=== PATIENT | female | born 1995 | race Caucasian/White ===

== ENCOUNTER 2023-07-30 13:27 | Outpatient (CLI) | payer BC ==
[2023-07-30 14:58] LABS: #Eosinphils 0.1 10x3/uL (0.0-0.5); #Monocytes 0.6 10x3/uL (0.0-1.1); #Neutrophils 3.4 10x3/uL (1.5-8.4); %Basophils 0.5 % (0.0-2.0); %Eosinophils 1.3 % (0.0-6.0); %Lymphocytes 34.8 % (18.0-47.0); %Monocytes 9.4 % (0.0-10.0); %Neutrophils 53.7 % (40.0-75.0); Hematocrit 41.2 % (34.9-44.5); Hemoglobin 14.1 g/dL (12.0-15.5); Mean Corpuscular HGB CONC 34.2 g/dL (32.0-36.0); Mean Corpuscular Hemoglobin 31.5 pg (27.0-33.0); Mean Corpuscular Volume 92.2 fl (81.6-98.3); Mean Platelet Volume 9.9 fl (7.4-10.4); Platelet Count 297 10x3/uL (150-450); RBC Distribution Width 11.8 % (11.5-14.5); Red Blood Cell (RBC) Count 4.47 10x6/uL (3.90-5.03); White Blood Cell (WBC) Count 6.3 10x3/uL (3.5-10.5)
[2023-07-30 15:13] LABS: BHCG - Serum Negative (NEGATIVE); Pregs Control Background? CLEAR/WHITE (CLR/WHITE); Pregs Control Bar Appear? YES (CONTROL BAR)
[2023-07-30 15:20] LABS: ALT (SGPT) 21 U/L (8-55); AST (SGOT) 23 U/L (5-34); Albumin 4.1 g/dL (3.5-5.0); Alkaline Phosphatase 62 U/L (40-110); Bilirubin, Direct 0.1 mg/dL (0.1-0.3); Bilirubin, Total 0.2 mg/dL (0.2-1.2); Protein, Total 7.3 g/dL (6.0-8.3)
== END 2023-07-30 13:28 | disposition home or self-care (01) ==
LOC: LABBT 13:27
PROVIDERS: ATTEND Surgery
DX: Z01.812 Encounter for preprocedural laboratory examination (principal); K80.20 Calculus of gallbladder without cholecystitis without obstruction
CPT/HCPCS: 80076; 84703; 85025

== ENCOUNTER 2023-08-04 09:15 | Day surgery (SDC) | payer BC ==
[2023-07-30 13:54] VITALS: BMI 31.7
[2023-08-04] MEDS ORDERED: Lidocaine 1% MPF 2 ML VIAL ONE (10:01)
[2023-08-04] MEDS ORDERED: LevoFLOXacin 500 mg/D5W 100 ML BAG ONE (10:02)
[2023-08-04] MEDS ORDERED: EPINEPHrine 1 MG/ML VIAL ONE (10:20)
[2023-08-04] MEDS ORDERED: Indocyanine Green 25 MG/10 ML VIAL ONE (10:20)
[2023-08-04] MEDS ORDERED: Bupivacaine 0.25% HCL 30 ML VIAL ONE (10:20)
[2023-08-04] MEDS ORDERED: SUGAMMADEX SODIUM 200 MG/2 ML VIAL ONE (11:24)
[2023-08-04] MEDS ORDERED: fentaNYL 50 mcg/mL 1 mL Vial ONE ×3 (11:24→13:01)
[2023-08-04] MEDS ORDERED: Meperidine HCl/PF 25 MG/ML VIAL ONE (11:24)
[2023-08-04] MEDS ORDERED: Famotidine/PF 20 mg/2ml Vial ONE (11:24)
[2023-08-04] MEDS ORDERED: Ondansetron PF 4 MG/2 ML Vial ONE (11:32)
[2023-08-04] MEDS ORDERED: Rocuronium Bromide 10 MG/ML (10ML VIAL) ONE (11:32)
[2023-08-04] MEDS ORDERED: Dexamethasone 20 MG/5 ML VIAL ONE (11:32)
[2023-08-04] MEDS ORDERED: Metoclopramide HCl 10 MG/2 ML VIAL ONE (11:32)
[2023-08-04] MEDS ORDERED: Ketorolac Tromethamine 30 MG/ML VIAL ONE (11:32)
[2023-08-04] MEDS ORDERED: PROPOFOL 200 MG/20 ML VIAL ONE (11:32)
[2023-08-04] MEDS ORDERED: Lidocaine 1% PF 5 ML VIAL ONE (11:32)
[2023-08-04] MEDS ORDERED: HYDROcodone/Acetaminophen 5/325 mg Tablet ONE (13:59)
== END 2023-08-04 14:50 | disposition home or self-care (01) ==
LOC: SDC 09:15
PROVIDERS: ATTEND Surgery
PROC: 0FT44ZZ Resection of Gallbladder, Percutaneous Endoscopic Approach (ICD-10-PCS; principal; 2023-08-04)
DX: K80.10 Calculus of gallbladder with chronic cholecystitis without obstruction (principal); E03.9 Hypothyroidism, unspecified; Z88.0 Allergy status to penicillin
CPT/HCPCS: 88304; J0171; J1956; J2175; J3010; S0020; S0028